=== PATIENT | male | born 1990 | race Two or more races ===

== ENCOUNTER 2025-07-23 23:13 | Emergency (ER) | payer OTHER ==
[~2025-07-23] VITALS: Ht 180.3 cm; Wt 134.3 kg
[2025-07-23 23:33] VITALS: BP 150/115; O2SAT 100
[2025-07-24] MEDS ORDERED: MORPHINE SULFATE 4 MG/ML CARTRIDGE IV STA (00:05)
[2025-07-24] MEDS ORDERED: 0.9 % SODIUM CHLORIDE 1,000 ML IV STA (00:05)
[2025-07-24] MEDS ORDERED: ONDANSETRON HCL 2 MG/ML VIAL IV STA (00:06)
[2025-07-24] MEDS ORDERED: FAMOTIDINE/PF 20 MG/2 ML VIAL IV STA (00:06)
[2025-07-24 03:01] LABS: BASO % 0.5 % (0.1-1.2); EOS # 0.03 (0.04-0.54); EOS % 0.3 % (0.7-7.0); LYMPH # 3.09 (1.18-3.74); LYMPH % 26.9 % (19.3-53.1); MEAN PLATELET VOLUME 10.00 fl (9.4-12.4); MONO # 0.60 (0.24-0.82); MONO % 5.2 % (4.7-12.5); NEUT # 7.67 (1.56-6.13); NEUT % 66.8 % (34.0-71.1); RED CELL DISTRIBUTION WIDTH 12.9 % (11.6-14.4)
[2025-07-24 03:05] LABS: ERYTHROCYTE SEDIMENTATION RATE 18 mm/hr (0-15)
[2025-07-24 03:10] LABS: URINE APPEARANCE Clear; URINE BILIRRUBIN Negative (NEGATIVE); URINE COLOR Dark Yellow; URINE GLUCOSE Negative (NEGATIVE); URINE KETONE 15 (NEGATIVE); URINE LEUKOCYTE Negative; URINE NITRATE Negative; URINE PROTEIN 30 (NEGATIVE); URINE UROBILINOGEN 1.0 E.U./dl
[2025-07-24] MEDS ORDERED: DIPHENHYDRAMINE HCL 50 MG/ML VIAL 1ML IV STA (03:12)
[2025-07-24] MEDS ORDERED: METHYLPREDNISOLONE SOD SUCC 125 MG VIAL IV STA (03:12)
[2025-07-24 03:13] LABS: URINE BACTERIA 14.3 uL (0.0-1933); URINE EPITHELIAL CELLS 1.8 uL (0.0-38.8); URINE RBC 115.8 uL (0.0-20.8); URINE WBC 1.9 uL (0.0-23.2)
[2025-07-24 03:20] LABS: URINE BLOOD TRACES; URINE CAST 0.29 uL (0.0-1.40)
[2025-07-24 03:22] LABS: INR 1.05
[2025-07-24 03:29] LABS: ALT/SGPT 55.0 U/L (12-78); AST/SGOT 30.0 U/L (15-37); BILIRUBIN TOTAL 1.35 mg/dL (0.3-1.2); BUN CREA RATIO 21.0 (7.0-25.0); CREATININE SERUM 0.97 mg/dL (0.70-1.30); GFR 87.09; GLOBULINA 3.9 G/DL (2.4-3.5); GLUCOSE FASTING 101.0 mg/dL (65-100); OSMOLALITY SERUM 280.0 MOSM/KG (275-295)
[2025-07-24] MEDS ORDERED: TAMSULOSIN HCL 0.4 MG CAP PO STA (04:08)
[2025-07-24] MEDS ORDERED: KETO10TA2 PO (08:19)
[2025-07-24] MEDS ORDERED: TAMS0.4C PO (08:19)
[2025-07-24] MEDS ORDERED: CIPRO500 MG PO (08:19)
== END 2025-07-24 08:31 | disposition home or self-care (01) ==
LOC: ER 23:14
PROVIDERS: Physician Assistant Medical
DX: N20.1 Calculus of ureter (principal); Z88.0 Allergy status to penicillin; Z91.018 Allergy to other foods; K52.89 Other specified noninfective gastroenteritis and colitis; R31.9 Hematuria, unspecified